=== PATIENT | male | born 1955 | race Caucasian/White ===

== ENCOUNTER 2023-01-02 21:35 | Emergency (ER) | payer SELFPAY ==
[~2023-01-02] VITALS: Ht 182.9 cm; Wt 125.0 kg
[2023-01-02 22:17] LABS: Basophils # (auto) 0.1 10 ^3/uL (0-0.2); Basophils % (auto) 0.8 % (0.0-2.0); Eosinophils # (auto) 0.2 10 ^3/uL (0-0.8); Eosinophils % (auto) 2.6 % (0.0-7.0); Hematocrit 39.8 % (41.0-53.0); Hemoglobin 13.3 g/dL (13.5-17.5); Lymphocytes # (auto) 2.3 10 ^3/uL (0.4-5.4); Lymphocytes % (auto) 29.1 % (10.0-50.0); Mean Corpuscular Hemoglobin 30.2 pg (28.0-32.0); Mean Corpuscular Hgb Conc. 33.3 g/dL (32.0-36.0); Mean Corpuscular Volume 90.5 fL (80.0-100.0); Monocytes # (auto) 0.9 10 ^3/uL (0-1.3); Monocytes % (auto) 11.7 % (0.0-12.0); Neutrophils # (auto) 4.4 10 ^3/uL (1.6-8.6); Neutrophils % (auto) 55.8 % (37.0-80.0); Nucleated Red Blood Cells % 0.1 %; Red Blood Cells 4.39 10^6/uL (4.5-5.90); Red Cell Distribution Width 15.1 % (11.8-14.3); White Blood Cell 7.9 10^3/uL (4.4-10.8)
[2023-01-02 22:38] LABS: INR 1.75 (0.9-1.15); Partial Thromboplastin Time 31.4 sec (24.6-33.4)
[2023-01-02 22:54] LABS: Albumin 2.9 g/dL (3.4-5.0); Calcium 8.3 mg/dL (8.5-10.1); Potassium 3.4 mmol/L (3.5-5.1)
[2023-01-02 22:55] LABS: BUN/Creatinine Ratio 19.8 (10.0-20.0)
[2023-01-02 22:58] LABS: Total Protein 6.6 g/dL (6.4-8.2)
[2023-01-03 00:35] VITALS: BP 119/65
== END 2023-01-03 00:40 | disposition home or self-care (01) ==
LOC: EDBD 21:35 → ER 21:35
DX: M25.074 Hemarthrosis, right foot (principal); I48.91 Unspecified atrial fibrillation; J44.9 Chronic obstructive pulmonary disease, unspecified; I11.0 Hypertensive heart disease with heart failure; I50.9 Heart failure, unspecified
CPT/HCPCS: 36415; 80053; 85025; 85610; 85730

== ENCOUNTER 2024-04-01 08:59 | Inpatient (IN) | payer BC, MEDICARE, OTHER ==
[~2024-04-01] VITALS: Ht 182.9 cm; Wt 102.8 kg
[~2024-04-01 08:59] MED LIST: FURO40TA4 PO; OMEP1CAP70 PO; TAMS-35 PO
[2024-04-01] MEDS: MORPHINE SULFATE 4 MG/ML SYR/VIAL IV ONE (09:15)
[2024-04-01 09:40] LABS: Basophils # (auto) 0.1 10 ^3/uL (0-0.2); Eosinophils # (auto) 0.4 10 ^3/uL (0-0.8); Lymphocytes # (auto) 1.7 10 ^3/uL (0.4-5.4); Mean Corpuscular Volume 88.1 fL (80.0-100.0)
[2024-04-01 09:41] LABS: Basophils % (auto) 0.8 % (0.0-2.0); Eosinophils % (auto) 4.7 % (0.0-7.0); Hematocrit 36.2 % (41.0-53.0); Lymphocytes % (auto) 21.7 % (10.0-50.0); Mean Corpuscular Hemoglobin 29.1 pg (28.0-32.0); Mean Corpuscular Hgb Conc. 33.1 g/dL (32.0-36.0); Monocytes # (auto) 0.8 10 ^3/uL (0-1.3); Monocytes % (auto) 9.5 % (0.0-12.0); Neutrophils # (auto) 5.1 10 ^3/uL (1.6-8.6); Neutrophils % (auto) 63.3 % (37.0-80.0); Nucleated Red Blood Cells % 0.1 %; Red Blood Cells 4.11 10^6/uL (4.5-5.90)
[2024-04-01 09:53] LABS: Alanine Aminotransferase 10 U/L (7-40); Albumin 3.9 g/dL (3.2-4.8); Alkaline Phosphatase 102 U/L (46-116); Anion Gap 5 (5-15); Aspartate Aminotransferase 15 U/L (13-40); BUN/Creatinine Ratio 13.6 (10.0-20.0); Blood Urea Nitrogen 9 mg/dL (9-23); Calcium 9.3 mg/dL (8.5-10.1); Carbon Dioxide 25 mmol/L (20-30); Chloride 108 mmol/L (98-107); Glucose 119 mg/dL (74-106); Magnesium 1.9 mg/dL (1.6-2.6); Potassium 3.8 mmol/L (3.5-5.1); Sodium 138 mmol/L (136-145)
[2024-04-01 09:54] LABS: Bilirubin, Total 0.4 mg/dL (0.2-1.0); INR 2.08 (0.9-1.15); Partial Thromboplastin Time 39.1 SEC (24.5-34.5); Prothrombin Time 20.9 sec (9.3-11.8)
[2024-04-01] MEDS ORDERED: NITROGLYCERIN 0.4 MG SL TAB SL PRN (13:15)
[2024-04-01] MEDS ORDERED: MORPHINE SULFATE INJ 2 MG/ml SYRG IV PRN (13:15)
[2024-04-01 14:49] VITALS: BP 108/69; PULSE 91; RESP 16; TEMP 98.9; O2SAT 97
[2024-04-01 15:12] VITALS: RESP 14; O2SAT 94
[2024-04-01] MEDS: ASPirin 325 MG TAB PO ONE (15:38)
[2024-04-01] MEDS: FUROSEMIDE 40 MG/4 ML VIAL IV ONE (15:48)
[2024-04-01 16:20] VITALS: BP 103/63; PULSE 101; RESP 20; TEMP 98.1; O2SAT 100
[2024-04-01] MEDS: FUROSEMIDE 40 MG/4 ML VIAL IV SCH (17:29)
[2024-04-01] MEDS ORDERED: WARF-113 PO (18:22)
[2024-04-01] MEDS ORDERED: FURO1TAB33 PO (18:22)
[2024-04-01] MEDS ORDERED: OMEP20TA PO (18:22)
[2024-04-01 20:00] VITALS: PULSE 96; PULSE 97; RESP 18; O2SAT 97
[2024-04-01] MEDS: ATORVASTATIN 20 MG TAB PO SCH (20:40)
[2024-04-01 21:00] VITALS: BP 103/64; PULSE 97; RESP 18; TEMP 98.3; O2SAT 97
[2024-04-01] MEDS: ENOXAPARIN SOD 100 MG/1 ML SYRINGE SC SCH (22:00)
[2024-04-02] VITALS (10 sets, daily range): BP systolic 92–111; BP diastolic 50–76; PULSE 82–100; RESP 14–20; TEMP 97.3–98.8; O2SAT 93–98
[2024-04-02] MEDS: ACETAMINOPHEN 325 MG TAB PO PRN (01:25)
[2024-04-02 06:39] LABS: Triglycerides 127 mg/dL (< 150)
[2024-04-02 06:40] LABS: LDL Cholesterol 126 mg/dL (< 100)
[2024-04-02 06:41] LABS: Cholesterol 175 mg/dL (< 200); HDL Cholesterol 26 mg/dL (40-59)
[2024-04-02] MEDS: ASPirin 81 mg TAB PO SCH (08:08)
[2024-04-02] MEDS: LACTULOSE 20Gm/30ML SOLN PO ONE (15:55)
[2024-04-02] MEDS: WARFARIN SODIUM 5 MG TAB PO ONE (17:52)
[2024-04-03] VITALS (8 sets, daily range): BP systolic 93–110; BP diastolic 55–65; PULSE 77–98; RESP 16–19; TEMP 97.6–98.6; O2SAT 95–97
[2024-04-03 06:54] LABS: INR 1.54 (0.9-1.15); Partial Thromboplastin Time 35.4 SEC (24.5-34.5); Prothrombin Time 15.8 sec (9.3-11.8)
[2024-04-03] MEDS: IOHEXOL 350 MG/ML 100ML IJ ONE (10:03)
[2024-04-03] MEDS ORDERED: WARF-115 PO (16:52)
[2024-04-03] MEDS ORDERED: MET25T PO (16:53)
[2024-04-03] MEDS ORDERED: DAPA1TAB4 PO (16:53)
[2024-04-03] MEDS: WARFARIN SODIUM 5 MG TAB PO ONE (17:00)
[2024-04-04] VITALS (8 sets, daily range): BP systolic 97–107; BP diastolic 60–73; PULSE 89–100; RESP 16–20; TEMP 97.6–98.9; O2SAT 96–100
[2024-04-04 07:23] LABS: INR 1.63 (0.9-1.15); Prothrombin Time 16.7 sec (9.3-11.8)
[2024-04-04] MEDS: WARFARIN SODIUM 5 MG TAB PO ONE (18:47)
[2024-04-05] VITALS (8 sets, daily range): BP systolic 95–122; BP diastolic 65–82; PULSE 71–97; RESP 17–20; TEMP 97.3–98.3; O2SAT 94–98
[2024-04-05 06:59] LABS: INR 1.84 (0.9-1.15); Partial Thromboplastin Time 36.9 SEC (24.5-34.5); Prothrombin Time 18.6 sec (9.3-11.8)
[2024-04-05] MEDS: WARFARIN SODIUM 5 MG TAB PO ONE (17:39)
[2024-04-06 01:00] VITALS: BP 108/71; PULSE 97; RESP 18; TEMP 98.1; O2SAT 96
[2024-04-06 05:13] VITALS: BP 109/75; PULSE 83; RESP 18; TEMP 97.7; O2SAT 94
[2024-04-06 06:09] LABS: INR 2.08 (0.9-1.15); Prothrombin Time 20.9 sec (9.3-11.8)
[2024-04-06 08:00] VITALS: PULSE 88; PULSE 97; RESP 20; O2SAT 98
[2024-04-06 08:30] VITALS: BP 112/77; PULSE 93; RESP 19; TEMP 97.6; O2SAT 97
[2024-04-06 09:34] VITALS: BP 109/75
== END 2024-04-06 12:28 | disposition home or self-care (01) | DRG 280 ==
LOC: ER 08:59 → EDBD 08:59 → TELE 13:16 → TELE-E-ADS 14:56
PROVIDERS: ADMIT Nurse Practitioner Family; ATTEND Family Medicine
DX: I11.0 Hypertensive heart disease with heart failure (principal); I50.43 Acute on chronic combined systolic (congestive) and diastolic (congestive) heart failure; I21.A1 Myocardial infarction type 2; G45.9 Transient cerebral ischemic attack, unspecified; I48.20 Chronic atrial fibrillation, unspecified; I69.351 Hemiplegia and hemiparesis following cerebral infarction affecting right dominant side; I08.1 Rheumatic disorders of both mitral and tricuspid valves; J44.9 Chronic obstructive pulmonary disease, unspecified; Z79.899 Other long term (current) drug therapy; Z79.82 Long term (current) use of aspirin; Z79.01 Long term (current) use of anticoagulants; Z80.42 Family history of malignant neoplasm of prostate; Z88.1 Allergy status to other antibiotic agents; Z82.5 Family history of asthma and other chronic lower respiratory diseases; Z82.49 Family history of ischemic heart disease and other diseases of the circulatory system; Z82.0 Family history of epilepsy and other diseases of the nervous system; Z86.79 Personal history of other diseases of the circulatory system
CPT/HCPCS: 36415; 70450; 70496; 71045; 80053; 80061; 83735; 83880; 84100; 84484; 85025; 85610; 85730; 87081; 93005; 93306; 97110; 97116; 97163; 97530; G0378